=== PATIENT | male | born 1955 | race Caucasian/White ===

== ENCOUNTER 2018-10-05 12:47 | Emergency (ER) | payer BC ==
--- NOTE | 2018-10-05 14:34 | CR ---
[id number] RAD/RAD Knee Right 3V EXAM: RAD Knee Right 3V CLINICAL DATA: TRAUMA COMPARISON: NO PREVIOUS SIMILAR EXAM IS AVAILABLE. FINDINGS: No fracture or dislocation is seen. There are significant tricompartmental degenerative changes.. IMPRESSION: NO FRACTURE OR DISLOCATION. Hunter Bone MD 10/05/18 [id number] Thank you for allowing us to participate in the care of your patient.
--- NOTE | 2018-10-05 14:34 | EDM.PDOC ---
ED HPI GENERAL MEDICAL PROBLEM - General Chief Complaint: Lower Extremity Injury/Pain Stated Complaint: HURT LEG FALLING DOWN STAIRS Time Seen by Provider: 10/05/18 13:15 Source of Information: Reports: Patient History Limitations: Reports: No Limitations - History of Present Illness INITIAL COMMENTS - FREE TEXT/NARRATIVE: Patient comes into the emergency department with lower right extremity injury. Patient was playing with his grandkids and he ended up falling down on his knee super flexing his right knee and twisting his right ankle. Patient was able to ambulate and walk on his right lower extremity however there is pain when he does bear weight he states it does feel better when sitting. He is also noted some swelling on his right knee. He denies taking any Tylenol or ibuprofen prior to arrival. He also denies any other injuries or illnesses. Onset: Sudden Location: Reports: Lower Extremity, Right Quality: Reports: Throbbing Severity: Moderate Improves with: Reports: Immobilization Worsens with: Reports: Movement Context: Reports: Activity Associated Symptoms: Reports: No Other Symptoms ED ROS GENERAL - Review of Systems Review Of Systems: ROS reveals no pertinent complaints other than HPI. Constitutional: Reports: No Symptoms HEENT: Reports: No Symptoms Respiratory: Reports: No Symptoms Cardiovascular: Reports: No Symptoms Musculoskeletal: Reports: No Symptoms Skin: Reports: No Symptoms Neurological: Reports: No Symptoms Psychiatric: Reports: No Symptoms Hematologic/Lymphatic: Reports: No Symptoms Immunologic: Reports: No Symptoms ED EXAM, GENERAL - Physical Exam Exam: See Below Exam Limited By: No Limitations General Appearance: Alert, WD/WN, No Apparent Distress Respiratory/Chest: No Respiratory Distress, No Accessory Muscle Use Cardiovascular: Normal Peripheral Pulses, No Edema Extremities: Leg Pain (right knee-mild swelling noted full ROM, CMS intact, abrasion medial aspect mid shaft tibial area. Right ankle-ecchymosis noted and mild swelling. ROM and CMS intact) Neurological: Alert, Oriented Skin Exam: Warm, Dry, Intact Course - Orders/Labs/Meds Orders: Active Orders 24 hr Category Date Time Status Ankle Min 3V Rt [CR] Stat Exams 10/05/18 13:24 Taken Knee 3V Rt [CR] Stat Exams 10/05/18 13:24 Taken Departure - Departure Time of Disposition: 14:40 Disposition: Home, Self-Care 01 Condition: Good Clinical Impression: Effusion, right knee Right ankle sprain Qualifiers: Encounter type: initial encounter Involved ligament of ankle: unspecified ligament Qualified Code(s): S93.401A - Sprain of unspecified ligament of right ankle, initial encounter - Discharge Information *PRESCRIPTION DRUG MONITORING PROGRAM REVIEWED*: Not Applicable *COPY OF PRESCRIPTION DRUG MONITORING REPORT IN PATIENT GLEN: Not Applicable Instructions: Ankle Sprain, [id number] Forms: ED Department Discharge Additional Instructions: 1. rest 2. Keep extremity elevated at all times above the level of the heart is recommended to help reduce the swelling 3. Ice the extremity for 20 minutes at a time and at least 3-4 times a day for comfort 4. X-ray shows no acute findings or fracture 5. Follow up as needed. 6. Activity and diet as tolerated. 7. Can you an lemuel wrap for support and comfort if you wish for 2-3 days 9. Call with any questions or concerns you may have. - Problem List Review Problem List Initiated/Reviewed/Updated: Yes - My Orders Last 24 Hours: My Active Orders 10/05/18 13:24 Ankle Min 3V Rt [CR] Stat Knee 3V Rt [CR] Stat - Assessment/Plan Last 24 Hours: My Active Orders 10/05/18 13:24 Ankle Min 3V Rt [CR] Stat Knee 3V Rt [CR] Stat Assessment:: 1. right knee effusion 2. Right ankle sprain Plan: 1. x-ray completed in the emergency department. Results reviewed with patient. No acute findings noted 2. She advised to use an Lemuel wrap for comfort and support as necessary. 3. Education regarding rice technique, activity, diet, [id number] medication, and follow-up appointments provided 4. All questions and concerns addressed prior to discharge
--- NOTE | 2018-10-05 14:35 | CR ---
[id number] RAD/RAD Ankle Right 3V Min EXAM: RAD Ankle Right 3V Min CLINICAL DATA: TRAUMA COMPARISON: NO PREVIOUS SIMILAR EXAM IS AVAILABLE. FINDINGS: No fracture or dislocation is seen. There is no radiopaque foreign body in the soft tissues. There is no air in the soft tissues. There is no cortical thickening or periosteal reaction either. IMPRESSION: NEGATIVE PLAIN FILM EXAM. Hunter Bone MD 10/05/18 [id number] Thank you for allowing us to participate in the care of your patient.
== END 2018-10-05 15:00 | disposition home or self-care (01) ==
LOC: VM.ED 12:47 → MERGE 12:47 → VM.ED 15:00
DX: S93.401A Sprain of unspecified ligament of right ankle, initial encounter (principal); S80.211A Abrasion, right knee, initial encounter; W19.XXXA Unspecified fall, initial encounter
CPT/HCPCS: 73562-RT; 73610-RT; 99283-25